=== PATIENT | female | born 1980 | race Caucasian/White ===

== ENCOUNTER → 2016-12-05 | Outpatient (CLI) | payer BC ==
[2016-12-05 17:16] LABS: BUN/CREATININE RATIO 13.2 (6.0-26.0); CALCIUM 9.5 mg/dL (8.4-10.2); POTASSIUM 4.7 mmol/L (3.6-5.0)
[2016-12-05 23:28] LABS: T3 FREE 2.8 pg/mL (1.7-3.7)
== END ==
LOC: LAB 16:09
PROVIDERS: Family Medicine
DX: E28.2 Polycystic ovarian syndrome (principal); E04.1 Nontoxic single thyroid nodule; E66.3 Overweight